=== PATIENT | female | born 1960 | race Caucasian/White ===

== ENCOUNTER 2021-09-20 12:18 | Emergency (ER) | payer OTHER, MEDICAID ==
[~2021-09-20] VITALS: Ht 152.4 cm; Wt 68.9 kg
[2021-09-20 12:24] VITALS: BP_SYST 155
--- NOTE | 2021-09-20 12:30 | NUR ---
Pt brought by caregiver, A&Ox4, pt presents to ER with LAC on back of the head, per caregiver pt fell while sitting in bed, no KO, skin pink and warm, cap refill <3, VSS, respirations even and unlabored.
--- NOTE | 2021-09-20 15:11 | NUR ---
Patient to ER bed 07 to gown for evaluation. Side rails up.
--- NOTE | 2021-09-20 15:13 | NUR ---
Pt brought by caregiver, A&Ox4, pt presents to ER with LAC on back of the head after slip and fall from bed , no KO, skin pink and warm, cap refill <3, VSS, respirations even and unlabored.
--- NOTE | 2021-09-20 15:25 | NUR ---
Dr Simpson evaluating patient at bedside
[2021-09-20] MEDS ORDERED: BACITRACIN 1 GM OINT TP ONE (15:39)
[2021-09-20 15:59] VITALS: BP_SYST 152
--- NOTE | 2021-09-20 16:01 | NUR ---
Note undone in ED - 09/20/21 at 1602 by [email or web address] Patient given written and verbal discharge instructions and verbalizes understanding. ER discussed with patient the results and treatment provided. Patient in stable condition. ID arm band removed. No Rx given. Patient educated on pain management and to follow up with PMD. Pain Scale 0/10 . Opportunity for questions provided and answered. Medication side effect fact sheet provided.
--- NOTE | 2021-09-20 16:01 | NUR ---
Patient and pt's caregiver given written and verbal discharge instructions and verbalizes understanding. ER MD discussed with patient and pt's caregiver the results and treatment provided. Patient in stable condition. ID arm band removed. No Rx given. Patient and pt's caregiver educated on pain management and to follow up with PMD. Pain Scale 0/10 . Opportunity for questions provided and answered. Medication side effect fact sheet provided.
== END 2021-09-20 16:01 | disposition home or self-care (01) ==
LOC: SED 12:18
DX: S01.01XA Laceration without foreign body of scalp, initial encounter (principal); I10 Essential (primary) hypertension; R51.9 Headache, unspecified; K21.9 Gastro-esophageal reflux disease without esophagitis; W18.39XA Other fall on same level, initial encounter; Y93.89 Activity, other specified; Y92.89 Other specified places as the place of occurrence of the external cause; Y99.8 Other external cause status
CPT/HCPCS: 70450-TC; 72125-TC; 76376; 99284

== ENCOUNTER 2022-10-10 23:13 | Emergency (ER) | payer OTHER, MEDICAID ==
[2022-10-10 23:39] VITALS: BP_SYST 135; PULSE 103; RESP 20; TEMP 97.6; O2SAT 98
--- NOTE | 2022-10-10 23:50 | NUR ---
Patient triaged and placed in waiting room. VSS and patient appears in no acute distress at this time. Accompanied by faculty worker, awaiting available bed, and MD notified of need for MSE.
--- NOTE | 2022-10-11 00:23 | NUR ---
Patient to ER bed 08 to gown for evaluation. Side rails up. Report given to RAJAN CHAMPAGNE.
--- NOTE | 2022-10-11 00:30 | NUR ---
Received pt A/A, metally challenged individual w/ a senior care assistant at bedside. Pt is from [facility]. Pt screems to verbalize needs w/ a screeming tic, requires cont. re-direction. NAD noted. Pending MD herring
--- NOTE | 2022-10-11 00:35 | NUR ---
Pt presents to the ED w/ caregiver. Boarding Home sent pt to make ssure her injuries are not adverse. Pt fell of a treadmill a few days ago injuring her left shoulder, then 10/10 pt dell while ambulating incuring a R lateral forehead superficial Laceration.
--- NOTE | 2022-10-11 00:40 | NUR ---
SANCHEZ SHAVER at bedside.
[2022-10-11] MEDS ORDERED: MIDAZOLAM HCL 5 MG/5 ML VIAL IM ONE (03:00)
--- NOTE | 2022-10-11 03:00 | NUR ---
Pt in need of CT scan of head and shoulder x-ray.
[2022-10-11] MEDS ORDERED: HALOPERIDOL LACTATE 5 MG/ML VIAL IM ONE (03:45)
--- NOTE | 2022-10-11 04:00 | NUR ---
Pt to CT for the 2nd time. Despite IM medication given pt with rebound effect. CT scan aborted for the 2nd time.
[2022-10-11] MEDS ORDERED: KETAMINE HCL 500 MG/10 ML VIAL IM ONE (06:00)
[2022-10-11] MEDS ORDERED: MIDAZOLAM HCL 5 MG/5 ML VIAL IVP ONE (06:15)
--- NOTE | 2022-10-11 06:48 | NUR ---
Pt in CT scan. Versed 2mg given in CT effective. CT in progress.
[2022-10-11] MEDS ORDERED: BACITRACIN 1 GM OINT TP ONE (07:15)
[2022-10-11 08:46] VITALS: BP_SYST 132; PULSE 95; RESP 16; TEMP 96.8; O2SAT 99
--- NOTE | 2022-10-11 08:46 | NUR ---
Patient given written and verbal discharge instructions and verbalizes understanding. ER MD discussed with patient the results and treatment provided. Patient in stable condition. ID arm band removed. IV catheter removed intact and dressing applied, no active bleeding. Patient educated on pain management and to follow up with PMD. Opportunity for questions provided and answered. Medication side effect fact sheet provided.
== END 2022-10-11 08:46 | disposition home or self-care (01) ==
LOC: SED 23:13
DX: S42.032A Displaced fracture of lateral end of left clavicle, initial encounter for closed fracture (principal); S00.81XA Abrasion of other part of head, initial encounter; K21.9 Gastro-esophageal reflux disease without esophagitis; I10 Essential (primary) hypertension; Z79.899 Other long term (current) drug therapy; W19.XXXA Unspecified fall, initial encounter; Y93.89 Activity, other specified; Y92.89 Other specified places as the place of occurrence of the external cause; Y99.8 Other external cause status
CPT/HCPCS: 99285; 70450; 96374; 73030; 72125; 76376; 96372; J1630; J2250

== ENCOUNTER 2022-10-14 09:39 | Emergency (ER) | payer OTHER, MEDICAID ==
[~2022-10-14] VITALS: Ht 149.9 cm; Wt 70.3 kg
--- NOTE | 2022-10-14 09:50 | NUR ---
PT BROUGHT BY NURSE TO BED, ALL SIDE RAILS PUT UP
--- NOTE | 2022-10-14 09:54 | NUR ---
Dr. Simpson examining Patient.
[2022-10-14 09:55] VITALS: BP_SYST 146; PULSE 90; RESP 18; TEMP 98.3; O2SAT 94
--- NOTE | 2022-10-14 09:58 | NUR ---
Patient BIB facility staff c/o right knee pain following fall from bed last night. Patient is developmentally disable, in a wheelchair & is wearing a soft helmet for fall protection as part of the facility fall protection program. Patient is AAOX1-2 which is her baseline. Cooperative for assessment of injury & vitals. Med Hx of seizures. VSS.
--- NOTE | 2022-10-14 10:00 | NUR ---
Patient taken to radiology for xrays
[2022-10-14] MEDS ORDERED: HYDROcodone/ACETAMIN 7.5-325 MG TAB PO ONE (11:00)
[2022-10-14] MEDS ORDERED: TRAM50TA2 PO (11:01)
[2022-10-14] MEDS ORDERED: IBUP-1969 PO (11:01)
[2022-10-14 11:20] VITALS: BP_SYST 146; PULSE 90; RESP 18; TEMP 98.3; O2SAT 94
--- NOTE | 2022-10-14 11:20 | NUR ---
Patient given written and verbal discharge instructions and verbalizes understanding. ER MD GARY discussed with patient the results and treatment provided. Patient in stable condition. ID arm band removed. IV catheter removed intact and dressing applied, no active bleeding. Rx of IBUPROFEN, TRAMADOL given. Patient educated on pain management and to follow up with PMD. Pain Scale 5/10. Opportunity for questions provided and answered. Medication side effect fact sheet provided.
== END 2022-10-14 11:26 | disposition home or self-care (01) ==
LOC: SED 09:39
DX: S80.01XA Contusion of right knee, initial encounter (principal); I10 Essential (primary) hypertension; K21.9 Gastro-esophageal reflux disease without esophagitis; Z79.899 Other long term (current) drug therapy; W06.XXXA Fall from bed, initial encounter; Y93.89 Activity, other specified; Y92.89 Other specified places as the place of occurrence of the external cause; Y99.8 Other external cause status
CPT/HCPCS: 73564; 99283

== ENCOUNTER 2022-10-19 09:34 | Inpatient (IN) | payer OTHER, MEDICAID ==
[~2022-10-19] VITALS: Ht 175.3 cm; Wt 68.9 kg
[~2022-10-19 09:34] MED LIST: IBUP-1969 PO; TRAM50TA2 PO
[2022-10-19 09:49] VITALS: BP_SYST 81; PULSE 99; RESP 17; TEMP 98.7; O2SAT 91
[2022-10-19] MEDS ORDERED: NS 1000 ML IV.SOLN IV ONE (10:30)
[2022-10-19] MEDS ORDERED: cefTRIAXone 1 GM IVPB PREMIX 50 ML IV ONE ×2 (10:30→13:36)
[2022-10-19 10:57] LABS: BASOPHILS # (AUTO) 0.1 K/uL (0.0-0.2); BASOPHILS % (AUTO) 0.6 % (0.0-2.0); EOSINOPHILS # (AUTO) 0.1 K/uL (0.0-0.4); EOSINOPHILS % (AUTO) 0.9 % (0.0-4.0); HEMOGLOBIN 9.1 g/dL (12.0-16.0); LYMPHOCYTES # (AUTO) 2.2 K/uL (1.0-5.5); LYMPHOCYTES % (AUTO) 17.1 % (20.5-51.5); MEAN CORPUSCULAR HEMOGLOBIN 30 pg (27-31); MEAN CORPUSCULAR HGB CONC 33 % (32-36); MEAN CORPUSCULAR VOLUME 92 fL (79.0-98.0); MONOCYTES # (AUTO) 1.4 K/uL (0.0-1.0); MONOCYTES % (AUTO) 11.2 % (1.7-9.3); NEUTROPHILS # (AUTO) 8.9 K/uL (1.8-7.7); NEUTROPHILS % (AUTO) 70.2 % (40.0-70.0); PLATELET COUNT (AUTO) 229 K/uL (130-430); RED BLOOD CELL COUNT(AUTO) 3.05 MIL/uL (4.2-6.2); RED CELL DISTRIBUTION WIDTH 15.7 % (9.0-15.0); WHITE BLOOD COUNT (AUTO) 12.6 K/uL (4.8-10.8)
[2022-10-19] MEDS ORDERED: LORazepam 2 MG/ML VIAL IM ONE ×2 (11:15→11:30)
[2022-10-19 11:27] LABS: ALANINE AMINOTRANSFERASE 14 U/L (12-78); ALBUMIN 3.4 g/dL (3.4-4.8); ANION GAP 6 (5-15); ASPARTATE AMINOTRANSFERASE 16 U/L (10-37); CALCIUM 8.8 mg/dL (8.4-11.0); CHLORIDE 98 mmol/L (98-107); CREATININE 1.03 mg/dL (0.55-1.30); GFR AFRICAN AMERICAN 70 mL/min (>90); GLUCOSE 100 mg/dL (74-106); TOTAL BILIRUBIN 0.5 mg/dL (0.0-1.0); UREA NITROGEN, BLOOD 26 mg/dL (8-21)
[2022-10-19] MEDS ORDERED: SODIUM ZIRCONIUM CYCLOSILICATE 10 GM POWD.PACK PO ONE (11:45)
[2022-10-19 12:00] LABS: BILIRUBIN,URINE NEGATIVE (NEGATIVE); BLOOD, URINE NEGATIVE (NEGATIVE); CLARITY/URINE CLEAR (CLEAR); COLOR,URINE YELLOW (YELLOW); GLUCOSE,URINE NEGATIVE (NEGATIVE); KETONES,URINE NEGATIVE (NEGATIVE); LEUKOCYTE ESTERASE ,URINE NEGATIVE (NEGATIVE); NITRITE, URINE NEGATIVE (NEGATIVE); PROTEIN URINE NEGATIVE (NEGATIVE)
[2022-10-19] MEDS ORDERED: MIDAZOLAM HCL 5 MG/5 ML VIAL IM ONE (12:30)
[2022-10-19] MEDS ORDERED: AMLO5TAB4 PO (12:39)
[2022-10-19] MEDS ORDERED: BENZ100C92 PO (12:39)
[2022-10-19] MEDS ORDERED: DIVA500T4 PO (12:39)
[2022-10-19] MEDS ORDERED: DICL100G33 TP (12:39)
[2022-10-19] MEDS ORDERED: MULT18TA PO (12:39)
[2022-10-19] MEDS ORDERED: LIP20 PO (12:39)
[2022-10-19] MEDS ORDERED: ACET325T53 PO (12:39)
[2022-10-19] MEDS ORDERED: TRAZ-250 PO (13:07)
[2022-10-19] MEDS ORDERED: GUAR205P3 PO (13:07)
[2022-10-19] MEDS ORDERED: SERT50TA PO (13:07)
[2022-10-19] MEDS ORDERED: FERR240T9 PO (13:07)
[2022-10-19] MEDS ORDERED: GUAR1PAC4 PO (13:07)
[2022-10-19] MEDS ORDERED: METO25TA3 PO (13:07)
[2022-10-19] MEDS ORDERED: TRAM50TA2 PO (13:07)
[2022-10-19] MEDS ORDERED: LORA2TAB95 PO (13:07)
[2022-10-19] MEDS ORDERED: LORA10CA PO (13:07)
[2022-10-19] MEDS ORDERED: FAMO20TA8 PO (13:07)
[2022-10-19] MEDS ORDERED: LISI20TA30 PO (13:07)
[2022-10-19] MEDS ORDERED: VITD2000 PO (13:07)
[2022-10-19] MEDS ORDERED: OLAN20TA6 PO (13:07)
[2022-10-19] MEDS ORDERED: MELO-89 PO (13:07)
[2022-10-19] MEDS ORDERED: NITR-85 PO (13:07)
[2022-10-19] MEDS ORDERED: POLY17PO4 PO (13:07)
[2022-10-19] MEDS ORDERED: LORazepam 2 MG/ML VIAL IVP ONE (15:00)
[2022-10-19] MEDS ORDERED: LORazepam 1 MG TABLET PO SCH (16:45)
[2022-10-19] MEDS ORDERED: ACETAMINOPHEN 325 MG TABLET PO PRN (16:45)
[2022-10-19] MEDS ORDERED: traMADol HCL HCL 50 MG TABLET (ULTRAM) PO PRN (16:45)
[2022-10-19] MEDS ORDERED: ONDANSETRON HCL 4 MG/2 ML VIAL IVP PRN (16:45)
[2022-10-19] MEDS ORDERED: IBUPROFEN 600 MG TABLET PO PRN (16:45)
[2022-10-19] MEDS ORDERED: BENZONATATE 100 MG CAPSULE (TESSALON) PO PRN (16:45)
[2022-10-19 17:50] VITALS: BP_SYST 109; PULSE 85; RESP 14; TEMP 98.1
[2022-10-19 18:00] VITALS: O2SAT 99
[2022-10-19 20:19] VITALS: BP_SYST 120; PULSE 94; RESP 18; TEMP 97; O2SAT 100
[2022-10-19] MEDS: DIVALPROEX SODIUM 500 MG TAB.SR.24H (DEPAKOTE ER) PO SCH ×2 (21:00→22:20)
[2022-10-19] MEDS ORDERED: NON-FORMULARY MEDICATION (Diclofenac Sodium 1 APPLIC) TP SCH (21:00)
[2022-10-19 22:00] VITALS: BP_SYST 120; PULSE 94; RESP 18; TEMP 97.7; O2SAT 100
[2022-10-19] MEDS: FERROUS GLUCONATE 324 MG TABLET PO SCH (22:19)
[2022-10-19] MEDS: NORMAL SALINE 5 ML DISP.SYRIN IVF SCH (22:19)
[2022-10-19] MEDS: traZODone HCL 50 MG TABLET (DESYREL) PO SCH (22:20)
[2022-10-19] MEDS: ATORVASTATIN 20 MG TABLET PO SCH (22:20)
[2022-10-19] MEDS: FAMOTIDINE 20 MG TABLET PO SCH (22:20)
[2022-10-19] MEDS: LORazepam 2 MG/ML VIAL IVP PRN (22:22)
[2022-10-20 00:39] VITALS: BP_SYST 124; PULSE 112; RESP 18; TEMP 98.1; O2SAT 96
[2022-10-20] MEDS: NORMAL SALINE 5 ML DISP.SYRIN IVF SCH ×3 (06:22→22:24)
[2022-10-20 06:48] LABS: CALCIUM 9.3 mg/dL (8.4-11.0); CREATININE 0.69 mg/dL (0.55-1.30); PHOSPHORUS 3.7 mg/dL (2.7-4.5); THYROID STIMULATING HORMONE 1.6 uIu/mL (0.34-4.82)
[2022-10-20 07:12] LABS: BASOPHILS % (AUTO) 0.5 % (0.0-2.0); EOSINOPHILS # (AUTO) 0.1 K/uL (0.0-0.4); HEMATOCRIT 29.8 % (36-48); HEMOGLOBIN 9.8 g/dL (12.0-16.0); LYMPHOCYTES # (AUTO) 0.7 K/uL (1.0-5.5); MEAN CORPUSCULAR HEMOGLOBIN 30 pg (27-31); MEAN CORPUSCULAR HGB CONC 33 % (32-36); MEAN CORPUSCULAR VOLUME 91 fL (79.0-98.0); MONOCYTES # (AUTO) 0.4 K/uL (0.0-1.0); NEUTROPHILS # (AUTO) 3.9 K/uL (1.8-7.7); NEUTROPHILS % (AUTO) 75.5 % (40.0-70.0); PLATELET COUNT (AUTO) 194 K/uL (130-430); RED BLOOD CELL COUNT(AUTO) 3.28 MIL/uL (4.2-6.2); RED CELL DISTRIBUTION WIDTH 15.4 % (9.0-15.0)
[2022-10-20 07:26] LABS: WHITE BLOOD COUNT (AUTO) 5.2 K/uL (4.8-10.8)
[2022-10-20 07:30] VITALS: O2SAT 96
[2022-10-20 07:54] VITALS: BP_SYST 144; PULSE 99; RESP 16; TEMP 97.8; O2SAT 96
[2022-10-20 08:00] VITALS: BP_SYST 112; PULSE 106; RESP 18; TEMP 98.2; O2SAT 100
[2022-10-20] MEDS: MELOXICAM 7.5 MG TABLET PO SCH (08:39)
[2022-10-20] MEDS: METOPROLOL SUCCINATE 25 MG TAB.SR.24H (TOPROL XL) PO SCH (08:40)
[2022-10-20] MEDS: FAMOTIDINE 20 MG TABLET PO SCH ×2 (08:40→20:21)
[2022-10-20] MEDS: MULTIVITAMINS TAB 1 TABLET PO SCH (08:40)
[2022-10-20] MEDS: LORATADINE 10 MG TABLET PO SCH (08:41)
[2022-10-20] MEDS: FERROUS GLUCONATE 324 MG TABLET PO SCH ×2 (08:41→20:20)
[2022-10-20] MEDS: amLODIPine BESYLATE 5 MG TABLET PO SCH (08:41)
[2022-10-20] MEDS: POLYETHYLENE GLYCOL 3350, 17 GM/ POWD.PACK PO SCH (08:42)
[2022-10-20] MEDS: SERTRALINE HCL 50 MG TABLET PO SCH (08:42)
[2022-10-20] MEDS: OLANZapine 10 MG TABLET PO SCH (08:42)
[2022-10-20] MEDS: CHOLECALCIFEROL (VITAMIN D3) 2,000 UNIT TABLET PO SCH (08:43)
[2022-10-20] MEDS ORDERED: NITROFURANTOIN MONOHYD/M-CRYST 100 MG CAPSULE (MacroBID) PO SCH (09:00)
[2022-10-20] MEDS ORDERED: lisinopriL 20 MG TABLET PO SCH (09:00)
[2022-10-20] MEDS ORDERED: GUAR GUM PO SCH (09:00)
[2022-10-20] MEDS: LORazepam 2 MG/ML VIAL IVP PRN ×2 (11:56→21:47)
[2022-10-20] MEDS: cefTRIAXone 1 GM IVPB PREMIX 50 ML IV SCH (12:01)
[2022-10-20 16:00] VITALS: BP_SYST 152; PULSE 86; RESP 18; TEMP 97.8; O2SAT 99
[2022-10-20] MEDS ORDERED: SODIUM ZIRCONIUM CYCLOSILICATE 10 GM POWD.PACK PO ONE ×2 (19:45→21:10)
[2022-10-20 20:00] VITALS: O2SAT 95
[2022-10-20] MEDS: traZODone HCL 50 MG TABLET (DESYREL) PO SCH (20:20)
[2022-10-20] MEDS: ATORVASTATIN 20 MG TABLET PO SCH (20:20)
[2022-10-20] MEDS: DIVALPROEX SODIUM 250 MG TAB.SR.24H (DEPAKOTE ER) PO SCH (20:21)
[2022-10-21] VITALS (7 sets, daily range): BP systolic 96–134; PULSE 92–110; RESP 18; TEMP 96.8–98.6; O2SAT 96–100
[2022-10-21 05:42] LABS: BASOPHILS % (AUTO) 0.9 % (0.0-2.0); EOSINOPHILS # (AUTO) 0.1 K/uL (0.0-0.4); EOSINOPHILS % (AUTO) 2.2 % (0.0-4.0); HEMATOCRIT 26.1 % (36-48); HEMOGLOBIN 8.8 g/dL (12.0-16.0); LYMPHOCYTES % (AUTO) 20.9 % (20.5-51.5); MEAN CORPUSCULAR HEMOGLOBIN 30 pg (27-31); MEAN CORPUSCULAR HGB CONC 34 % (32-36); MEAN CORPUSCULAR VOLUME 91 fL (79.0-98.0); MONOCYTES # (AUTO) 0.5 K/uL (0.0-1.0); MONOCYTES % (AUTO) 9.4 % (1.7-9.3); NEUTROPHILS # (AUTO) 3.3 K/uL (1.8-7.7); NEUTROPHILS % (AUTO) 66.6 % (40.0-70.0); PLATELET COUNT (AUTO) 203 K/uL (130-430); RED BLOOD CELL COUNT(AUTO) 2.89 MIL/uL (4.2-6.2); RED CELL DISTRIBUTION WIDTH 14.9 % (9.0-15.0); WHITE BLOOD COUNT (AUTO) 4.9 K/uL (4.8-10.8)
[2022-10-21 06:07] LABS: CALCIUM 9.1 mg/dL (8.4-11.0); CREATININE 0.81 mg/dL (0.55-1.30); ERYTHROCYTE SEDIMENTATION RATE 27 MM/HR (0-20)
[2022-10-21] MEDS: NORMAL SALINE 5 ML DISP.SYRIN IVF SCH ×3 (06:30→20:05)
[2022-10-21] MEDS: SERTRALINE HCL 50 MG TABLET PO SCH (08:42)
[2022-10-21] MEDS: FERROUS GLUCONATE 324 MG TABLET PO SCH ×2 (08:42→20:03)
[2022-10-21] MEDS: CHOLECALCIFEROL (VITAMIN D3) 2,000 UNIT TABLET PO SCH (08:43)
[2022-10-21] MEDS: MELOXICAM 7.5 MG TABLET PO SCH (08:43)
[2022-10-21] MEDS: LORATADINE 10 MG TABLET PO SCH (08:43)
[2022-10-21] MEDS: amLODIPine BESYLATE 5 MG TABLET PO SCH (08:44)
[2022-10-21] MEDS: MULTIVITAMINS TAB 1 TABLET PO SCH (08:44)
[2022-10-21] MEDS: METOPROLOL SUCCINATE 25 MG TAB.SR.24H (TOPROL XL) PO SCH (08:45)
[2022-10-21] MEDS: FAMOTIDINE 20 MG TABLET PO SCH ×2 (08:45→20:04)
[2022-10-21] MEDS: POLYETHYLENE GLYCOL 3350, 17 GM/ POWD.PACK PO SCH (08:46)
[2022-10-21] MEDS: OLANZapine 10 MG TABLET PO SCH (08:46)
[2022-10-21] MEDS: traMADol HCL HCL 50 MG TABLET (ULTRAM) PO PRN ×2 (08:47→18:35)
[2022-10-21] MEDS: cefTRIAXone 1 GM IVPB PREMIX 50 ML IV SCH (12:08)
[2022-10-21] MEDS: ATORVASTATIN 20 MG TABLET PO SCH (20:03)
[2022-10-21] MEDS: DIVALPROEX SODIUM 250 MG TAB.SR.24H (DEPAKOTE ER) PO SCH (20:04)
[2022-10-21] MEDS: traZODone HCL 50 MG TABLET (DESYREL) PO SCH (20:04)
[2022-10-21] MEDS: LORazepam 2 MG/ML VIAL IVP PRN (20:34)
[2022-10-22 01:04] VITALS: BP_SYST 150; PULSE 96; RESP 18; TEMP 97.4; O2SAT 100
[2022-10-22 05:31] LABS: BASOPHILS # (AUTO) 0.1 K/uL (0.0-0.2); BASOPHILS % (AUTO) 1.1 % (0.0-2.0); EOSINOPHILS # (AUTO) 0.1 K/uL (0.0-0.4); EOSINOPHILS % (AUTO) 1.7 % (0.0-4.0); HEMOGLOBIN 10.1 g/dL (12.0-16.0); LYMPHOCYTES # (AUTO) 1.6 K/uL (1.0-5.5); LYMPHOCYTES % (AUTO) 18.1 % (20.5-51.5); MEAN CORPUSCULAR HEMOGLOBIN 30 pg (27-31); MEAN CORPUSCULAR HGB CONC 34 % (32-36); MEAN CORPUSCULAR VOLUME 90 fL (79.0-98.0); MONOCYTES # (AUTO) 0.7 K/uL (0.0-1.0); MONOCYTES % (AUTO) 8.1 % (1.7-9.3); NEUTROPHILS # (AUTO) 6.1 K/uL (1.8-7.7); PLATELET COUNT (AUTO) 236 K/uL (130-430); RED BLOOD CELL COUNT(AUTO) 3.34 MIL/uL (4.2-6.2); RED CELL DISTRIBUTION WIDTH 15.2 % (9.0-15.0); WHITE BLOOD COUNT (AUTO) 8.6 K/uL (4.8-10.8)
[2022-10-22] MEDS: NORMAL SALINE 5 ML DISP.SYRIN IVF SCH ×3 (06:19→20:54)
[2022-10-22 06:46] LABS: CALCIUM 9.4 mg/dL (8.4-11.0); CREATININE 0.85 mg/dL (0.55-1.30); TOTAL BILIRUBIN 0.3 mg/dL (0.0-1.0)
[2022-10-22 06:49] LABS: ERYTHROCYTE SEDIMENTATION RATE 37 MM/HR (0-20)
[2022-10-22 08:00] VITALS: BP_SYST 127; PULSE 91; RESP 18; TEMP 97; O2SAT 95
[2022-10-22] MEDS: traMADol HCL HCL 50 MG TABLET (ULTRAM) PO PRN (08:58)
[2022-10-22] MEDS: OLANZapine 10 MG TABLET PO SCH (08:58)
[2022-10-22] MEDS: CHOLECALCIFEROL (VITAMIN D3) 2,000 UNIT TABLET PO SCH (09:05)
[2022-10-22] MEDS: MELOXICAM 7.5 MG TABLET PO SCH (09:05)
[2022-10-22] MEDS: FAMOTIDINE 20 MG TABLET PO SCH ×2 (09:06→20:54)
[2022-10-22] MEDS: MULTIVITAMINS TAB 1 TABLET PO SCH (09:06)
[2022-10-22] MEDS: METOPROLOL SUCCINATE 25 MG TAB.SR.24H (TOPROL XL) PO SCH (09:06)
[2022-10-22] MEDS: FERROUS GLUCONATE 324 MG TABLET PO SCH ×2 (09:06→20:54)
[2022-10-22] MEDS: SERTRALINE HCL 50 MG TABLET PO SCH (09:06)
[2022-10-22] MEDS: POLYETHYLENE GLYCOL 3350, 17 GM/ POWD.PACK PO SCH (09:07)
[2022-10-22] MEDS: amLODIPine BESYLATE 5 MG TABLET PO SCH (09:07)
[2022-10-22] MEDS: LORATADINE 10 MG TABLET PO SCH (09:07)
[2022-10-22 11:18] VITALS: BP_SYST 100; PULSE 96; RESP 16; TEMP 97.6; O2SAT 96
[2022-10-22] MEDS: cefTRIAXone 1 GM IVPB PREMIX 50 ML IV SCH (12:22)
[2022-10-22 15:18] VITALS: BP_SYST 111; PULSE 91; RESP 16; TEMP 97.1; O2SAT 95
[2022-10-22 20:00] VITALS: BP_SYST 118; PULSE 97; RESP 16; TEMP 98.5; O2SAT 96
[2022-10-22 20:30] VITALS: O2SAT 96
[2022-10-22] MEDS: LORazepam 2 MG/ML VIAL IVP PRN (20:53)
[2022-10-22] MEDS: DIVALPROEX SODIUM 250 MG TAB.SR.24H (DEPAKOTE ER) PO SCH (20:54)
[2022-10-22] MEDS: traZODone HCL 50 MG TABLET (DESYREL) PO SCH (20:54)
[2022-10-22] MEDS: ATORVASTATIN 20 MG TABLET PO SCH (20:54)
[2022-10-23 00:27] VITALS: BP_SYST 128; PULSE 85; RESP 16; TEMP 96.7; O2SAT 95
[2022-10-23] MEDS: NORMAL SALINE 5 ML DISP.SYRIN IVF SCH (06:58)
[2022-10-23] MEDS: LORazepam 2 MG/ML VIAL IVP PRN (07:05)
[2022-10-23 07:53] LABS: BASOPHILS % (AUTO) 0.8 % (0.0-2.0); EOSINOPHILS # (AUTO) 0.1 K/uL (0.0-0.4); EOSINOPHILS % (AUTO) 2.3 % (0.0-4.0); HEMATOCRIT 28.8 % (36-48); HEMOGLOBIN 9.6 g/dL (12.0-16.0); LYMPHOCYTES # (AUTO) 1.3 K/uL (1.0-5.5); LYMPHOCYTES % (AUTO) 21.2 % (20.5-51.5); MEAN CORPUSCULAR HEMOGLOBIN 30 pg (27-31); MEAN CORPUSCULAR HGB CONC 33 % (32-36); MEAN CORPUSCULAR VOLUME 91 fL (79.0-98.0); MONOCYTES # (AUTO) 0.6 K/uL (0.0-1.0); MONOCYTES % (AUTO) 10.7 % (1.7-9.3); NEUTROPHILS # (AUTO) 3.9 K/uL (1.8-7.7); PLATELET COUNT (AUTO) 230 K/uL (130-430); RED BLOOD CELL COUNT(AUTO) 3.18 MIL/uL (4.2-6.2); RED CELL DISTRIBUTION WIDTH 15.6 % (9.0-15.0)
[2022-10-23 08:00] VITALS: BP_SYST 124; PULSE 94; RESP 18; TEMP 98.8; O2SAT 98
[2022-10-23 08:04] LABS: CALCIUM 9.8 mg/dL (8.4-11.0); CREATININE 0.86 mg/dL (0.55-1.30)
[2022-10-23] MEDS: POLYETHYLENE GLYCOL 3350, 17 GM/ POWD.PACK PO SCH (08:11)
[2022-10-23] MEDS: OLANZapine 10 MG TABLET PO SCH (08:11)
[2022-10-23] MEDS: MULTIVITAMINS TAB 1 TABLET PO SCH (08:11)
[2022-10-23] MEDS: amLODIPine BESYLATE 5 MG TABLET PO SCH (08:12)
[2022-10-23] MEDS: MELOXICAM 7.5 MG TABLET PO SCH (08:12)
[2022-10-23] MEDS: METOPROLOL SUCCINATE 25 MG TAB.SR.24H (TOPROL XL) PO SCH (08:13)
[2022-10-23] MEDS: FAMOTIDINE 20 MG TABLET PO SCH (08:13)
[2022-10-23 08:14] LABS: ERYTHROCYTE SEDIMENTATION RATE 40 MM/HR (0-20)
[2022-10-23] MEDS: LORATADINE 10 MG TABLET PO SCH (08:14)
[2022-10-23] MEDS: FERROUS GLUCONATE 324 MG TABLET PO SCH (08:14)
[2022-10-23] MEDS: traMADol HCL HCL 50 MG TABLET (ULTRAM) PO PRN ×2 (08:14→16:31)
[2022-10-23] MEDS: SERTRALINE HCL 50 MG TABLET PO SCH (08:14)
[2022-10-23] MEDS: CHOLECALCIFEROL (VITAMIN D3) 2,000 UNIT TABLET PO SCH (08:15)
[2022-10-23 09:51] VITALS: O2SAT 98
[2022-10-23] MEDS ORDERED: LORazepam 2 MG/ML VIAL IM ONE (11:00)
[2022-10-23] MEDS ORDERED: LORazepam 1 MG TABLET PO PRN (12:45)
[2022-10-23] MEDS ORDERED: AMOXICILLIN/CLAVULANATE POTASSIUM 500 MG TABLET PO SCH (14:00)
[2022-10-23 15:26] VITALS: BP_SYST 126; PULSE 88; RESP 18; TEMP 97.8; O2SAT 97
[2022-10-23 15:30] VITALS: BP_SYST 126; PULSE 88; RESP 18; TEMP 97.8; O2SAT 97
[2022-10-23] MEDS ORDERED: AMOX-423 PO (15:53)
[2022-10-23] MEDS ORDERED: DIVA250T PO (15:53)
== END 2022-10-23 17:05 | disposition short-term general hospital (02) | DRG 871 ==
LOC: SED 09:34 → STU 12:15 → SMU 10-22 11:38
PROVIDERS: ADMIT Preventive Medicine Preventive Medicine/Occupational Environmental Medicine; ATTEND Preventive Medicine Preventive Medicine/Occupational Environmental Medicine
DX: A41.9 Sepsis, unspecified organism (principal); I21.4 Non-ST elevation (NSTEMI) myocardial infarction; J18.9 Pneumonia, unspecified organism; J96.01 Acute respiratory failure with hypoxia; I21.A1 Myocardial infarction type 2; E87.1 Hypo-osmolality and hyponatremia; E87.20 Acidosis, unspecified; E88.09 Other disorders of plasma-protein metabolism, not elsewhere classified; F79 Unspecified intellectual disabilities; E78.00 Pure hypercholesterolemia, unspecified; G40.909 Epilepsy, unspecified, not intractable, without status epilepticus; D64.9 Anemia, unspecified; E87.5 Hyperkalemia; K21.9 Gastro-esophageal reflux disease without esophagitis; I10 Essential (primary) hypertension; Z20.822 Contact with and (suspected) exposure to COVID-19; R79.89 Other specified abnormal findings of blood chemistry; Z79.899 Other long term (current) drug therapy; Z79.1 Long term (current) use of non-steroidal anti-inflammatories (NSAID); Q90.9 Down syndrome, unspecified; B96.1 Klebsiella pneumoniae [K. pneumoniae] as the cause of diseases classified elsewhere
CPT/HCPCS: 36415; 71045; 80048; 80053; 80061; 81003; 83605; 83735; 83880; 84100; 84443; 84484; 85025; 85651-TC; 87040; 87086; 93005; 93306; 96365; 96372; 96375; 97530-GP; 99285; G0378; J0696; J2060; J2250

== ENCOUNTER 2023-07-19 09:08 | Emergency (ER) | payer OTHER, MEDICAID ==
[~2023-07-19] VITALS: Ht 144.8 cm; Wt 68.0 kg
[~2023-07-19 09:08] MED LIST changes: +ACET325T53 PO; +AMLO5TAB4 PO; +AMOX-423 PO; +BENZ100C92 PO; +DICL100G60 TP; +DIVA250T PO; +DIVA500T4 PO; +FAMO20TA8 PO; +FERR240T9 PO; +GUAR1PAC4 PO; +GUAR205P3 PO; +LIP20 PO; +LISI20TA30 PO; +LORA10CA PO; +LORA2TAB95 PO; +MELO-89 PO; +METO25TA3 PO; +MULT18TA PO; +NITR-85 PO; +OLAN20TA6 PO; +POLY17PO4 PO; +SERT50TA PO; +TRAZ-250 PO; +VITD2000 PO
[2023-07-19 09:18] VITALS: BP_SYST 146; PULSE 96; RESP 16; TEMP 97.8; O2SAT 97
[2023-07-19] MEDS: LORazepam 2 MG/ML VIAL IM ONE (10:33)
[2023-07-19] MEDS: NACL 0.9% 1,000 ML IV ONE (10:34)
[2023-07-19 11:26] LABS: BASOPHILS % (AUTO) 0.5 % (0.0-2.0); HEMATOCRIT 32.7 % (36-48); HEMOGLOBIN 11.1 g/dL (12.0-16.0); LYMPHOCYTES # (AUTO) 1.2 K/uL (1.0-5.5); LYMPHOCYTES % (AUTO) 25.3 % (20.5-51.5); MEAN CORPUSCULAR HEMOGLOBIN 31 pg (27-31); MEAN CORPUSCULAR HGB CONC 34 % (32-36); MEAN CORPUSCULAR VOLUME 92 fL (79.0-98.0); MONOCYTES # (AUTO) 0.3 K/uL (0.0-1.0); MONOCYTES % (AUTO) 7.4 % (1.7-9.3); NEUTROPHILS # (AUTO) 3.1 K/uL (1.8-7.7); NEUTROPHILS % (AUTO) 65.8 % (40.0-70.0); PLATELET COUNT (AUTO) 147 K/uL (130-430); RED BLOOD CELL COUNT(AUTO) 3.55 MIL/uL (4.2-6.2); RED CELL DISTRIBUTION WIDTH 14.7 % (9.0-15.0); WHITE BLOOD COUNT (AUTO) 4.7 K/uL (4.8-10.8)
[2023-07-19 11:28] LABS: CALCIUM 9.2 mg/dL (8.4-11.0); CREATININE 0.93 mg/dL (0.55-1.30); POTASSIUM 5.2 mmol/L (3.5-5.1)
[2023-07-19 11:33] LABS: ALBUMIN 3.5 g/dL (3.4-4.8); BILIRUBIN,DIRECT 0.1 mg/dL (0.0-0.3); TOTAL BILIRUBIN 0.3 mg/dL (0.0-1.0); TOTAL PROTEIN, SERUM 7.1 g/dL (6.4-8.3)
[2023-07-19 12:03] LABS: BILIRUBIN,URINE NEGATIVE (NEGATIVE); BLOOD, URINE NEGATIVE (NEGATIVE); CLARITY/URINE CLEAR (CLEAR); COLOR,URINE YELLOW (YELLOW); GLUCOSE,URINE NEGATIVE (NEGATIVE); KETONES,URINE NEGATIVE (NEGATIVE); LEUKOCYTE ESTERASE ,URINE NEGATIVE (NEGATIVE); NITRITE, URINE NEGATIVE (NEGATIVE); PROTEIN URINE NEGATIVE (NEGATIVE); UROBILINOGEN,URINE 0.2 (0.2-1.0)
[2023-07-19 12:13] VITALS: BP_SYST 91; PULSE 66; RESP 20; TEMP 96.1; O2SAT 99
[2023-07-19] MEDS ORDERED: TOBR3.5O25 OP (12:19)
== END 2023-07-19 12:25 | disposition home or self-care (01) ==
LOC: SED 09:08
DX: H10.9 Unspecified conjunctivitis (principal); R53.1 Weakness; I10 Essential (primary) hypertension; K21.9 Gastro-esophageal reflux disease without esophagitis
CPT/HCPCS: 99283; 96360; 80076; 80048; 81001; 85025; 87040; 36415; 83605; 96372; 81003; J2060; J7030